=== PATIENT | female | born 1935 | race Caucasian/White ===

== ENCOUNTER → 2016-10-21 08:34 | Outpatient (CLI) | payer MEDICARE ==
[2014-08-02 14:19] VITALS: BMI 21.6
[~2016-10-21 08:34] MED LIST: AMITRIPTYLINE100 MG PO; DULCOLAX5 MG PO; FOSAMAX 70 MG T70 MG PO; HYDROCODONE-APA1 TAB PO; LEVAQUIN500 MG PO; NORCO 5/325 TAB1 TA1 PO; NORVASC10 MG PO; PRAVACHOL80 MG PO; PRILOSEC20 MG PO; RESTORIL15 MG PO; TRANXENE T-TAB7.5 MG PO; ZOLOFT50 MG PO
== END | disposition home or self-care (01) ==
LOC: D.RAD 08:30
DX: R13.10 Dysphagia, unspecified (principal)

== ENCOUNTER 2017-02-09 20:32 | Emergency (ER) | payer MEDICARE ==
[2014-08-02 14:19] VITALS: BMI 21.6
[2017-02-09 21:52] LABS: BASOPHILS 0.4 % (0-2); EOSINOPHILS 1.6 % (0-7); HEMOGLOBIN 13.3 g/dL (12-16); IMMATURE GRANULOCYTES 0.2 % (0-5); LYMPHOCYTES 30.4 % (15-50); MCH 33.5 pg (26.0-34.0); MCHC 33.3 g/dL (31.0-37.0); MCV 100.8 fL (80.0-100.0); MEAN PLATELET VOLUME 9.3 fL (7.4-10.4); MONOCYTES 9.3 % (2-11); NEUTROPHILS 58.1 % (40-80); PLATELET COUNT 252 10x3/uL (130-400); RBC 3.97 10x6/uL (4.00-5.40); RDW 13.5 % (11.5-14.5); WBC 5.1 10x3/uL (4.8-10.8)
[2017-02-09 22:06] LABS: INR 0.94 (0.85-1.17); PROTIME 12.4 SECONDS (11.6-15.0)
[2017-02-09 22:14] LABS: ALBUMIN 3.6 g/dL (3.4-5.0); ANION GAP 10.8 mmol/L (8-16); BILIRUBIN - TOTAL 0.44 mg/dL (0.2-1.3); CALCIUM 9.4 mg/dL (8.5-10.1); CARBON DIOXIDE 32.9 mmol/L (21.0-32.0); CREATININE - SERUM 0.8 mg/dL (0.6-1.3); POTASSIUM - SERUM 3.7 mmol/L (3.5-5.1); PROTEIN - SERUM 6.9 g/dL (6.4-8.2)
== END 2017-02-10 00:26 | disposition home or self-care (01) ==
LOC: D.ER 20:32
PROVIDERS: Nurse Practitioner Family
DX: S00.83XA Contusion of other part of head, initial encounter (principal); W01.0XXA Fall on same level from slipping, tripping and stumbling without subsequent striking against object, initial encounter; Y93.89 Activity, other specified; Y92.029 Unspecified place in mobile home as the place of occurrence of the external cause; S01.01XA Laceration without foreign body of scalp, initial encounter; S09.90XA Unspecified injury of head, initial encounter

== ENCOUNTER 2017-12-10 10:14 | Emergency (ER) | payer MEDICARE ==
[~2017-12-10] VITALS: Ht 160 cm; Wt 50.9 kg
[2017-12-10 10:17] VITALS: Ht 160 cm; Wt 50.9 kg
[2017-12-10] MEDS ORDERED: TYLENOL W/CODEI1 TAB PO (12:17)
[2017-12-10 15:31] VITALS: BP 163/65
== END 2017-12-10 15:33 | disposition home or self-care (01) ==
LOC: D.ER 10:14
DX: M25.552 Pain in left hip (principal); M54.5 Low back pain; I10 Essential (primary) hypertension

== ENCOUNTER → 2017-12-16 10:35 | Outpatient (CLI) | payer MEDICARE ==
[2017-12-10 10:17] VITALS: BMI 19.8
[~2017-12-16 10:35] MED LIST changes: +TYLENOL W/CODEI1 TAB PO
== END | disposition home or self-care (01) ==
LOC: D.MRI 10:35
DX: M54.16 Radiculopathy, lumbar region (principal)

== ENCOUNTER → 2018-02-19 08:17 | Outpatient (CLI) | payer MEDICARE ==
[2017-12-10 10:17] VITALS: BMI 19.8
== END | disposition home or self-care (01) ==
LOC: D.CT 08:00
DX: R11.2 Nausea with vomiting, unspecified (principal); R93.5 Abnormal findings on diagnostic imaging of other abdominal regions, including retroperitoneum

== ENCOUNTER → 2018-02-23 10:51 | Outpatient (CLI) | payer MEDICARE ==
[2017-12-10 10:17] VITALS: BMI 19.8
== END | disposition home or self-care (01) ==
LOC: D.MRI 02-19 12:00
DX: R19.00 Intra-abdominal and pelvic swelling, mass and lump, unspecified site (principal)

== ENCOUNTER → 2018-06-19 09:51 | Outpatient (CLI) | payer MEDICARE ==
[2017-12-10 10:17] VITALS: BMI 19.8
== END | disposition home or self-care (01) ==
LOC: D.CT 09:51
PROVIDERS: ATTEND Family Medicine
DX: R51 Headache (principal)